=== PATIENT | male | born 1975 | race Caucasian/White ===

== ENCOUNTER 2017-12-19 12:55 | Emergency (ER) | payer SELFPAY ==
[~2017-12-19] VITALS: Ht 180.3 cm; Wt 95.3 kg
[2017-12-19 13:03] VITALS: BP 135/73
--- NOTE | 2017-12-19 13:07 | NUR ---
PT AMBULATES TO BED 7 AT THIS TIME W/ STEADY GAIT
--- NOTE | 2017-12-19 13:17 | NUR ---
DR. HAJI AT BEDSIDE ASSESSING PT
--- NOTE | 2017-12-19 13:25 | NUR ---
PT STATES HE IS ALSO AT A NEW JOB A LITTLE WORRIED ABOUT HIS JOB, WANTED TO COME GET CHECKED OUT SO HE CAN BE SURE HE CAN WORK.
[2017-12-19] MEDS ORDERED: IBUPROFEN 600 MG TAB PO ONE (13:30)
--- NOTE | 2017-12-19 13:36 | NUR ---
PT TAKEN TO XRAY IN WHEELCHAIR
--- NOTE | 2017-12-19 14:01 | NUR ---
PT RETURNED FROM XRAY
--- NOTE | 2017-12-19 14:29 | NUR ---
PT DISCHARGED HOME, LEAVING IN PEROSNAL CAR. DISCHARGE INSTRUCTIONS GIVEN AND ALL QUESTIONS ANSWERED. PT LEFT WITH RX.
--- NOTE | 2017-12-19 14:33 | NUR ---
PT LEFT, SIGNED ALL PAPERWORK BUT LEFT THE EDUCATION PACKET ON BED.
[2017-12-19 14:34] VITALS: BP 139/70
== END 2017-12-19 14:33 | disposition home or self-care (01) ==
LOC: EDBD 12:55 → MED 12:55
DX: Z04.1 Encounter for examination and observation following transport accident (principal); E78.00 Pure hypercholesterolemia, unspecified; V49.60XA Unspecified car occupant injured in collision with unspecified motor vehicles in traffic accident, initial encounter; Y93.89 Activity, other specified; Y92.89 Other specified places as the place of occurrence of the external cause; Y99.8 Other external cause status
CPT/HCPCS: 71046; 72040; 72100; 99284